=== PATIENT | male | born 1950 | race Caucasian/White ===

== ENCOUNTER 2020-08-23 11:07 | Day surgery (SDC) | payer MEDICARE, OTHER ==
[~2020-08-23] VITALS: Ht 172.7 cm; Wt 75.6 kg
[~2020-08-23 11:07] MED LIST: ALBU90OI6 INH; ATOR40TA PO; Aspir 8181 MG PO; DOCU100 PO; DULO30 PO; ESZO2 PO; GABA300 PO; HYDCHL25 PO; METO25 PO; Narcan 0.40.4 MG/ML INH; ROPI1 PO; TIOT18 INH
== END 2020-08-23 15:28 | disposition home or self-care (01) ==
LOC: ORSCSDS 11:07
PROVIDERS: Surgery
PROC: 0WUF0JZ Supplement Abdominal Wall with Synthetic Substitute, Open Approach (ICD-10-PCS; principal; 2020-08-23 13:00)
DX: K43.0 Incisional hernia with obstruction, without gangrene (principal); I10 Essential (primary) hypertension; J44.9 Chronic obstructive pulmonary disease, unspecified; F17.210 Nicotine dependence, cigarettes, uncomplicated; E78.00 Pure hypercholesterolemia, unspecified; Z79.899 Other long term (current) drug therapy; Z79.82 Long term (current) use of aspirin
CPT/HCPCS: C1781; J0690; J1100; J1885; J2250; J2405; J2704; J3010; J7120

== ENCOUNTER → 2021-12-26 | Outpatient (CLI) | payer MEDICARE, OTHER | END | disposition home or self-care (01) | LOC: PLD 07:52 → LAB SHORT 07:52 | DX: C60.9 Malignant neoplasm of penis, unspecified (principal) | CPT/HCPCS: 88305 ==